=== PATIENT | male | born 1950 | race Caucasian/White ===

== ENCOUNTER 2016-09-11 20:45 | Observation (INO) | payer OTHER ==
--- NOTE | ~2016-09-11 | CO ---
Unit #: [id number] #: [id number] Patient: BEBE ULRICH [id number] [address] [address] [id number] I MR#: [id number] NAME: BEBE ULRICH ROOM: 564 Age: 65 Sex: M Admission Date: 09/11/2016 : 1950 Attending Physician: Jenni Rosado M.D. Primary Care Physician: Christiano Snowden M.D. Requesting Physician: Jenni Rosado M.D. Consultation Date: 09/13/2016 CONSULTATION REPORT REASON FOR CONSULTATION "Noncardiac chest pain." HISTORY OF PRESENT ILLNESS Mr. Ulrich is a very pleasant 65-year-old white gentleman. 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 According to the patient in the past couple of weeks he has had two or three episodes of substernal chest pain radiating across the chest. These last for less than a minute or two each time and at times they are radiating to the bilateral jaws. He had the last episode yesterday evening. The pain almost felt like a toothache. He does have a background history of gastroesophageal reflux disease, but this is controlled on [id number] PPI therapy. PAST MEDICAL HISTORY 1. History of hypertension. 2. Hyperlipidemia. PAST SURGICAL HISTORY 1. Knee surgery. 2. Umbilical herniorrhaphy. 3. The patient required chest tube for collapsed lung about 20 years ago. SOCIAL HISTORY The patient is an ex-smoker, having more than 30 year pack history of smoking. He does not drink alcohol. He works as a chemistry associate. He lives at home with his . FAMILY HISTORY Significant for lung cancer and heart failure. ALLERGIES No known drug allergies. HOME MEDICATIONS 1. Nitroglycerin. 2. Lipitor. REVIEW OF SYSTEMS Detailed review of organ systems does not reveal any recent weight loss. No history of fever, chills or rigors, headache, seizures or syncope. No history of cough, expectoration or hemoptysis. He does mention a history of gastroesophageal reflux disease, controlled on [id number] PPI therapy. No history of dysuria, hematuria or pyuria. No history of focal Unit #: [id number] #: [id number] Patient: BEBE ULRICH seizures or (1)____ weakness. PHYSICAL EXAMINATION GENERAL: He is alert and oriented. He appears comfortable. VITALS: Stable with a temperature of 97.8, pulse 65 per minute, respiratory rate 18, blood pressure 141/89. He weighs 231 pounds and appears well nourished. HEENT: He has no pallor, icterus, lymphadenopathy or peripheral edema. LUNGS: Auscultation of the lungs revealed normal breath sounds and good entry. HEART: Normal heart sounds. No murmurs. ABDOMEN: Soft and nontender. Liver and spleen are not palpable. Bowel sounds present. DIAGNOSTIC STUDIES LABORATORY: Normal CBC and CMP. Cardiac enzymes are also normal. CARDIOVASCULAR: The patient apparently had a heart catheterization that does not show any major significant coronary artery disease, but he did have aneurysmal dilation of the ascending aorta. ASSESSMENT/PLAN Patient with "noncardiac" chest pain. He does have a background history of gastroesophageal reflux disease. It would be reasonable to proceed with a diagnostic endoscopy in this gentleman. The pros and cons of proceeding, including the potential risks and complications were discussed with the patient and and they were reassured. Thank you for asking me to see this pleasant gentleman. I appreciate the consultation. Dictated by... Janes Johnson/mani TD: 09/14/2016 09:42 JOB #: [id number] CC: Janes Adkins M.D. CONSULTATION REPORT X Reilly Baez MD CONSULTATION REPORT
--- NOTE | ~2016-09-11 | CT15 ---
[facility] A Service of [facility] & [facility] RADIOLOGY TEXT RESULTS PATIENT: BEBE SPRAGUE LOCATION: [facility] 564-01 : 51 UNIT #: [id number] AGE: [address]: Jenni Rosado MD SEX: M ORDER DR: [id number] [facility]. [place], [place] [address] [id number] I MR#: [id number] Acc #: [id number] NAME: BEBE SPRAGUE. : 1950 SEX: M STUDY DATE/TIME: 09/12/2016 20:30 UNIT: [facility] ROOM: [facility] STUDY DESCRIPTION: CT Angio Chest Attending Physician: Jenni Rosado M.D. Ordering Physician: Alejandro Marr M.D. Primary Care Physician: Christinao Snowden M.D. MEDICAL IMAGING REPORT This report is preliminary unless electronic signature is present EXAM CT angiography of the chest with IV contrast COMPARISON None INDICATIONS 65-year-old male with chest pain for 10 days and dyspnea for 2 days. Clinical concern for aneurysm. This CT exam was performed with one or more of the following radiation dose reduction techniques: automatic exposure control, adjustment of mA and/or kV according to patient size, and iterative reconstruction. FINDINGS Axial CT imaging of the chest was performed during arterial phase. Coronal and sagittal MIPs were subsequently constructed. Diffuse spondylosis of the anterior thoracic spine. No acute fractures or suspicious osseous lesions. Excreted contrast is noted within the renal calyces bilaterally. 2 mm low density lesion in the right hepatic lobe most consistent with a simple cyst. Separate simple cyst measuring up to 6 mm in the right hepatic lobe. Diverticulosis of the right colon without evidence of acute diverticulitis. Dependent atelectasis in the right lung. Mild para septal emphysematous changes in the dependent lower lobes as well as within the upper lobes. Calcified granuloma right middle lobe. Small blebs seen in the right lower lobe. No pneumothorax, pleural effusion or acute airspace disease. Airways are widely patent. Scattered mediastinal lymph nodes without pathologic enlargement, likely reactive. There is normal caliber of the pulmonary artery. Phase of postcontrast imaging is not designed for evaluation of pulmonary embolus. Normal heart size without pericardial STS. [facility] A Service of [facility] & [facility] RADIOLOGY TEXT RESULTS PATIENT: BEBE SPRAGUE LOCATION: [facility] 564-01 : [birth year] UNIT #: [id number] AGE: [address]: Jenni Rosado MD SEX: M ORDER DR: effusion. Evaluation of the thoracic aorta is mildly limited by motion artifact. There is normal caliber of the thoracic aorta and the suprarenal abdominal aorta. There is no evidence of aortic dissection. There is a three-vessel aortic arch. There is patency of the celiac artery and visualized branches. Visualized superior mesenteric artery is also patent. Evaluation for patency of the renal arteries is limited due to phase of postcontrast imaging. IMPRESSION 1. No evidence of thoracic or the suprarenal abdominal aorta aneurysm. 2. No dissection. 3. Mild to moderate emphysema. No acute airspace disease. 4. Colonic diverticulosis without evidence of acute diverticulitis. 5. Small cysts in the liver. Dictated by... Phu Mayen M.D. THIS IS AN ELECTRONICALLY VERIFIED REPORT Phu Mayen M.D. at 09/19/2016 8:24 AM Penelope TD: 09/13/2016 09:35 JOB #: [id number] MEDICAL IMAGING REPORT COPY
--- NOTE | ~2016-09-11 | EKG ---
PATIENT: BEBE SPRAGUE UNIT #: [id number] Ventricular Rate: 63 BPM Atrial Rate: 63 BPM P-R Interval: 186 ms QRS Duration: 100 ms Q-T Interval: 456 ms QTC Calculation(Bezet): 466 ms P [place]: 23 degrees Calculated R [place]: 16 degrees Calculated T [place]: 33 degrees Diagnosis Line: Normal sinus rhythm Diagnosis Line: Normal ECG Diagnosis Line: When compared with ECG of 11-SEP-2016 23:01, Diagnosis Line: (unconfirmed) Diagnosis Line: No significant change was found Diagnosis Line: Confirmed by KRISTOPHER ABBASI MD ([id number]) on Diagnosis Line: 09/12/2016 12:08:33 PM INTERPRETING MD: JOSÉ
--- NOTE | ~2016-09-11 | DS ---
Unit #: [id number] #: [id number] Patient: BEBE SPRAGUE [id number] [address] [place], [place] [address] [id number] I MR#: [id number] NAME: BEBE SPRAGUE. ROOM: 564 Age: 65 Sex: M Admission Date: 09/11/2016 : 1950 Discharge Date: 09/13/2016 Attending Physician: Jenni Rosado M.D. Primary Care Physician: Christiano Snowden M.D. DISCHARGE SUMMARY HISTORY This 65-year-old white male was admitted to the hospital because of chest pains. He was found to have hypertension, used to smoke cigars, which he gave up a number of years ago, and there is no history of diabetes mellitus or hyperlipidemia. He has been treated in the past for gastroesophageal reflux disease using Nexium. About a week prior to admission he started to complain of chest discomfort, which progressively worsened over the day or two before admission, described as mild pressure midsternal in location without any radiation. Details are available in the H and P, but as the pain started to worsen in severity and duration with radiation to the toothache, he came to the emergency room. He had complained of shortness of breath on exertion but leads a reasonably sedentary lifestyle to evaluate his exercise capacity. He denied any ankle edema, orthopnea, nocturnal dyspnea, syncope or near syncope. He drinks 1 or 2 alcoholic beverages on a daily basis. There is no family history of coronary artery disease at a young age. PHYSICAL EXAMINATION GENERAL: Physical examination revealed a middle-aged male in no acute distress. NECK: There is no jugular venous distention. Both carotids had a normal upstroke without any bruits. VITAL SIGNS: Blood pressure was 128/76. EXTREMITIES: There was no ankle edema. CARDIOVASCULAR: Cardiac exam showed apical impulse to be normal. Both heart sounds were normal. No rubs or clicks were audible. There was no murmur. RESPIRATORY: Chest examination was normal to palpation, percussion and auscultation. ABDOMEN: Abdominal examination showed mild obesity. There was no organomegaly, free fluid or masses. RECTAL: Examination was deferred. 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 DIAGNOSTIC STUDIES CARDIOVASCULAR: Electrocardiogram showed normal sinus rhythm and was within normal limits. IMAGING: Chest x-ray showed no significant abnormalities. LABORATORY: Cardiac enzymes were normal. Serum cholesterol was 137, triglycerides 42, LDL 71, HDL 58. CBC differential was normal with hemoglobin of 15.3, hematocrit 43.6, white cells 5,600, platelet count Unit #: [id number] #: [id number] Patient: BEBE SPRAGUE 146,000. HOSPITAL COURSE The patient was advised to consider an exercise Cardiolite scan or a cardiac catheterization, and with new onset of chest discomfort occurring at rest and with other major risk factors for coronary artery disease as described above, the patient and the family opted to undergo cardiac catheterization, which was performed on 09/12/16. Left ventricular systolic function was normal. There was moderately dilated ascending aorta that showed moderate unfolding of the aorta. Aortic valve consisted of 3 cusps. Left main coronary artery was normal. Left anterior descending artery and its branches were normal, and the left circumflex was a large caliber, dominant vessel, which was normal. Right coronary artery could not be engaged selectively during the cardiac catheterization being performed on the right radial artery approach because of marked tortuosity of the right brachiocephalic trunk. The patient was advised that a nondominant right coronary artery has not been visualized and could be the cause of his symptoms, but even if that was the case, treatment would be conservative, and medical management would be pursued. He was seen by Dr. Reilly Baez from gastroenterology service who suggested a trial of Protonix and scheduled him for a HIDA scan with CCK in the next few weeks because of the postprandial nature of his pain. The patient also underwent a CT angiography of the chest to rule out an aneurysmal dilatation, and it is reported as showing no evidence of thoracic or suprarenal abdominal aortic aneurysm. There is no dissection. There is [id number] emphysema with no acute airspace disease, and colonic diverticulosis was noted without evidence of acute diverticulitis. It should be noted that his echocardiogram showed left ventricular systolic function was normal with ejection fraction of 50% to 55%. There was mild pericardial effusion versus a small fat pad, and there was mild dilatation of the aortic root with a technically limited study. DISCHARGE MEDICATIONS 1. The patient will be discharged home on Protonix 40 mg p.o. b.i.d., and he should follow up with Dr. Baez in the next 6-8 weeks. 2. Metoprolol 25 mg p.o. b.i.d. is being started for better control of blood pressure and to help diastolic dysfunction. 3. Losartan 100 mg daily will continue. 4. Aspirin 81 mg daily. DISCHARGE INSTRUCTIONS I have advised the patient to follow up with Dr. Christiano Snowden on a regular basis, and if chest pains persist, he should contact my office, and arrangements will be made to evaluate right coronary artery distribution for significant ischemia either by an exercise Cardiolite scan or repeat cardiac catheterization using the right femoral artery approach. FINAL DIAGNOSES 1. Chest pain, etiology undetermined. 2. Hypertensive heart disease. 3. Maradiaga esophagus. 4. Probable gastroesophageal reflux disease. Unit #: [id number] #: [id number] Patient: BEBE SPRAGUE Dictated by... Janes Rogers TD: 09/15/2016 10:03 JOB #: [id number] DISCHARGE SUMMARY X Alejandro Marr MD X DISCHARGE SUMMARY
--- NOTE | ~2016-09-11 | EKG ---
PATIENT: BEBE SPRAGUE UNIT #: [id number] Ventricular Rate: 74 BPM Atrial Rate: 74 BPM P-R Interval: 176 ms QRS Duration: 110 ms Q-T Interval: 452 ms QTC Calculation(Bezet): 501 ms P [place]: 39 degrees Calculated R [place]: 30 degrees Calculated T [place]: 46 degrees Diagnosis Line: Normal sinus rhythm Diagnosis Line: Prolonged QT Diagnosis Line: Abnormal ECG Diagnosis Line: No previous ECGs available Diagnosis Line: Confirmed by KRISTOPHER ABBASI MD ([id number]) on Diagnosis Line: 09/12/2016 11:58:06 AM INTERPRETING MD: JOSÉ
--- NOTE | ~2016-09-11 | HP ---
Unit #: [id number] #: [id number] Patient: BEBE ULRICH [id number] [facility]. [place], [place] [address] [id number] I MR#: [id number] NAME: BEBE ULRICH. ROOM: 564 Age: 65 Sex: M Admission Date: 09/11/2016 : 1950 Attending Physician: Jenni Rosado M.D. Primary Care Physician: Christiano Snowden M.D. HISTORY AND PHYSICAL HISTORY OF PRESENT ILLNESS This is a 65-year-old white male with known history of having hypertension, who came to the emergency room with chest pain. According to the patient, about a week ago he had the onset of substernal chest pain that radiated across his chest. He said that he had some slight shortness of breath at that time. It lasted 5 to 10 minutes. He also was a little clammy. He said that it resolved. He was at work but he says he wasn't doing anything unusual. He sat down and rested for 5 or 10 minutes and it resolved. Since that time, he has had some mild pressure, mid sternal area, without any radiation until yesterday morning. 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 He said it radiated up across his chest and he even had some pain up into his left jaw. He said it felt like a toothache. He got a little clammy and he became very short of breath. The shortness of breath intensified along with the chest pain. He was brought into the emergency room for further evaluation. It was also noted that he had an episode a couple of nights before that where it woke him up in the night with some chest pressure but he got up and drank some water and the discomfort resolved. He denies any pain up into his bilateral shoulders, back. No abdominal pain. Denies any nausea, vomiting or diarrhea. No dizziness, presyncope or syncopal episodes. Denies any palpitations. No recent cough, fever or chills. The patient will be admitted with further evaluation and workup. The patient had a stress test over 20 years ago. He reports that it was normal. PAST MEDICAL HISTORY Hypertension. It is noted that he has hyperlipidemia but patient denies being on any medication. Quit smoking cigars about three years ago. He drinks two gin and tonics a night. Reports never been a heavy drinker. Stress test over 20 years ago. Reports that it was normal. Anxiety. PAST SURGICAL HISTORY 1. Umbilical hernia repair. 2. Knee surgery. 3. 20 years ago had a collapsed lung and required a chest tube. Unclear of the etiology. SOCIAL HISTORY Patient lives with his family. 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 He is otherwise fairly sedentary. Quit smoking cigars about three years ago. Never was a heavy cigarette smoker. He drinks two tonic gins nightly. Denies alcoholic abuse. No illicit drug abuse. Unit #: [id number] #: [id number] Patient: BEBE ULRICH FAMILY HISTORY His mother had complications of congestive heart failure. He is not sure of his father's history. His brother of lung cancer. REVIEW OF SYSTEMS CONSTITUTIONAL: Denies fever or chills. No recent weight gain or weight loss. HEENT: Denies headache or dizziness. No visual or hearing changes. No lymphadenopathy or thyromegaly, no difficulty swallowing. CARDIOVASCULAR: Chest pain present. Denies palpitations. Denies increased lower extremity edema. PULMONARY: Increased shortness of breath with the chest. Denies paroxysmal nocturnal dyspnea or orthopnea. GI: Denies nausea, vomiting, diarrhea or abdominal pain. NEUROLOGICAL: No focal weakness. PHYSICAL EXAMINATION GENERAL: On exam, Mr. Ulrich is a 65-year-old white male in no acute respiratory distress. He is awake, alert and oriented. VITAL SIGNS: Blood pressure is 117/88, heart rate 70, respirations 19, temperature 97.9, O2 sats 94% on room air. NECK: Trachea midline. No thyromegaly or lymphadenopathy. Normal carotid upstrokes. No jugular venous distention. HEART: S1, S2. Regular rate and rhythm. No clicks, murmurs or rubs. LUNGS: Diminished, otherwise clear. ABDOMEN: Soft, nontender. Positive bowel sounds present. No hepatosplenomegaly. EXTREMITIES: Pedal pulses are palpable. No pedal edema. DIAGNOSTIC STUDIES LABORATORY: Glucose 110, BUN 14, creatinine 0.8, eGFR above 60, sodium 141, potassium 3.8, chloride 109, CO2 26, calcium 8.8, magnesium 1.8. WBC 5.0, hemoglobin 14.7, hematocrit 4.3, platelets 150. Protime is 11.1, INR 1.0. D-dimer is 216. Initial cardiac enzymes - CK MB is 1.6, troponin less than 0.01. Repeat cardiac enzymes - CK total 37, troponin less than 0.03 and troponin less than 0.03. IMAGING: Chest x-ray shows no acute disease process. CARDIOVASCULAR: EKG shows normal sinus rhythm with ventricular rate 74 beats per minute, slightly prolonged QT. Questionable Q wave in V1 and nondiagnostic Q waves in lead III. Low voltage in inferior leads. IMPRESSION 1. Chest pain. 2. Hypertension. 3. Anxiety. 4. Alcohol use. 5. Reformed smoker. PLAN 1. With his symptoms that are suggestive of ischemic heart disease, will have a cardiac catheterization today by Dr. Marr to further evaluate. 2. Will continue the patient on aspirin 81 mg p.o. daily along with nitrate. He is on losartan for blood pressure management. Unit #: [id number] #: [id number] Patient: BEBE ULRICH 3. Will start Lipitor 80 mg p.o. now before his heart catheterization. 4. Discussed with patient risks and benefits of the heart catheterization including risk of bleeding, myocardial infarction, stroke and even . The patient verbalized his understanding and agrees to proceed. 5. Obtain a fasting lipid profile and evaluate. 6. On exam, there are no signs or symptoms of acute congestive heart failure. 7. Further recommendations pending per Dr. Marr and after his heart catheterization. 8. Will hold off on any Lovenox this morning. Patient did get a dose last evening in the ER. 9. Encouraged patient to completely quit alcohol use and lifestyle modifications. Dictated by Tiffani Obando A.P.R.N. for Alejandro Marr M.D. Brett TD: 09/12/2016 10:20 JOB #: [id number] HISTORY AND PHYSICAL X Tiffani Obando APRN X HISTORY AND PHYSICAL
--- NOTE | ~2016-09-11 | BMI ---
[facility] Nutrition Therapy DATE: 09/12/16 Patient: BEBE SPRAGUE Physician: ATTPRE Address: [address] Room/Bed: [address] [place] [address], Zip: [place] [address] Admit Date: 09/11/16 Date of : [birth year] Height: 5 3 Weight: 230 104.4 HIGH BMI NOTE: DX: 65 y/o male admitted with chest pain ANTHROPOMETRICS: Ht: 63", Wt: 104.4 kg, BMI: 40 DIET: NPO INTERVENTION: Restricted diet, meds/fluids per MD RECOMMENDATIONS: Once able advance to healthy heart diet to promote a gradual weight loss towards a healthy BMI range. Respectfully, Uzma Land RD, LD Food and Nutritional Services [facility] cc: client file
--- NOTE | ~2016-09-11 | OR ---
Unit #: [id number] #: [id number] Patient: BEBE SPRAGUE [id number] [address] [place], [place] [address] [id number] I MR#: [id number] NAME: BEBE SPRAGUE. ROOM: 564 Date of Procedure: 09/13/2016 Admission Date: 09/11/2016 Surgeon: Reilly Baez M.D. : 1950 Attending Physician: Jenni Rosado M.D. Primary Care Physician: Christiano Snowden M.D. OPERATIVE REPORT PRIMARY CARE PHYSICIAN Christiano Snowden M.D. PREOPERATIVE DIAGNOSIS "Noncardiac" chest pain. PROCEDURES PERFORMED Upper gastrointestinal endoscopy and biopsies. POSTOPERATIVE DIAGNOSES 1. The patient had classic changes of Maradiaga esophagus in the distal esophagus. The Maradiaga segment is about 4 cm in length. Biopsies obtained at 37 and 39 cm from the incisors in 4 quadrants and sent for histology. 2. Mild to moderate prepyloric antral erosive gastritis. 3. Rest of examination up to third part of duodenum was normal. RECOMMENDATIONS 1. The patient is advised to use pantoprazole 40 mg p.o. b.i.d. 2. An outpatient HIDA scan and ultrasound is being scheduled and the patient will be reviewed in the office in 4 to 6 weeks' time. The findings on upper endoscopy do not explain the patient's symptomatology. SEDATION USED MAC. DESCRIPTION OF PROCEDURE Following detailed explanation of potential risks and complications of an upper endoscopy, namely perforation, bleeding, and complications related to sedation, the patient was brought to GI lab and laid in the left lateral decubitus position. Lubricated tip of the Olympus video upper endoscope was passed through bite block into the proximal esophagus under direct vision. The entire esophageal mucosa was examined. The patient was noted to have changes of long segment of Maradiaga esophagus in the distal esophagus with classic changes. This Maradiaga segment is at least about 3.5 to 4 cm in length. No esophagitis was noted. The scope was then advanced into the gastric cavity and the latter was insufflated. Mucosa of the fundus, body, and antrum was examined. The patient noted to have mild to moderate prepyloric antral erythema and erosions indicating antral gastritis. Pylorus was intubated with visualization of the normal duodenal and second and third part of the duodenum. Upon withdrawal and retroflexion, incisura, cardia, and greater curve examined and a biopsy Unit #: [id number] #: [id number] Patient: BEBE SPRAGUE obtained from the antrum for CLOtest. The scope was withdrawn in the distal esophagus. Four-quadrant biopsies obtained at 39 and then 37 cm from incisors and sent for histology to look for incomplete intestinal metaplasia with or without dysplasia of Maradiaga. The entire esophageal mucosa was examined all the way up to pharynx. No additional findings noted. Dictated by... Janes Johnson/ruby TD: 09/14/2016 05:02 JOB #: [id number] OPERATIVE REPORT X Reilly Baez MD X PROCEDURE OPERATIVE NOTE
[~2016-09-11 20:45] MED LIST: COZAAR100 MG PO; KLONOPIN0.5 MG PO; NEXIUM 24HR20 MG PO
[2016-09-12 03:29] LABS: BASOPHIL# 0.1 X10e3 (0-0.3); BASOPHIL% 1.2 % (0-2.5); EOSINOPHIL# 0.1 X10e3 (0-0.7); EOSINOPHIL% 2.9 % (0.0-7.0); HEMATOCRIT 42.3 % (38.0-50.0); HEMOGLOBIN 14.7 gm/dL (13.0-16.0); LYMPHOCYTE# 0.9 X10e3 (1.0-3.5); MEAN CORPUSCULAR HEMOGLOBIN 29.9 PG (28-34); MEAN CORPUSCULAR HGB CONC 34.8 g/dL (30-36); MEAN PLATELET VOLUME 6.6 FL (6.5-11.5); MONOCYTE# 0.4 X10e3 (0-1.0); MONOCYTE% 7.5 % (3.0-12.0); NEUTROPHIL# 3.4 X10e3 (1.5-7.1); NEUTROPHIL% 69.4 % (40-75); PLATELET COUNT 150 X10e3 (140-420); RED BLOOD COUNT 4.91 X10e (3.90-5.60); RED CELL DISTRIBUTION WIDTH 15.2 % (11.0-15.5)
[2016-09-12 03:31] LABS: DIFF IND NO
[2016-09-12 03:49] LABS: PARTIAL THROMBOPLASTIN TIME 25.2 SECONDS (23.5-31.3)
[2016-09-12 03:58] LABS: BLOOD UREA NITROGEN 14 mg/dL (9-23); CALCIUM SERUM 8.8 mg/dL (8.4-10.2); CARBON DIOXIDE 26 mmol/L (22-31); CHLORIDE 109 mmol/L (100-111); CREATININE SERUM 0.8 mg/dL (0.6-1.4); GLOM FILT RATE Estimated ABOVE60 mL/min (>60); GLUCOSE FASTING 110 mg/dL (70-110); MAGNESIUM 1.8 mg/dL (1.6-3.0); POTASSIUM 3.8 mmol/L (3.5-5.1); SODIUM 141 mmol/L (135-145)
[2016-09-12 11:20] LABS: HEMATOCRIT 43.6 % (38.0-50.0); HEMOGLOBIN 15.3 gm/dL (13.0-16.0); MEAN CELL VOLUME 86.5 FL (83-96); MEAN CORPUSCULAR HEMOGLOBIN 30.3 PG (28-34); MEAN PLATELET VOLUME 6.7 FL (6.5-11.5); RED BLOOD COUNT 5.05 X10e (3.90-5.60); RED CELL DISTRIBUTION WIDTH 15.5 % (11.0-15.5)
[2016-09-12 11:27] LABS: PARTIAL THROMBOPLASTIN TIME 25.3 SECONDS (23.5-31.3); PROTHROMBIN TIME (PATIENT) 10.9 SECONDS (9.6-11.5)
[2016-09-12 12:26] LABS: CHOLESTEROL 137 mg/dL (0-200); HDL CHOLESTEROL 58 mg/dL (29-75); LDL CHOLESTEROL 71 mg/dL ([, -130]); LDL/HDL RATIO 1 RATIO (0-4); TRIGLYCERIDES 42 mg/dL (10-160)
[2016-09-12 13:03] LABS: BLOOD UREA NITROGEN 12 mg/dL (9-23); CALCIUM SERUM 8.8 mg/dL (8.4-10.2); CARBON DIOXIDE 26 mmol/L (22-31); CHLORIDE 105 mmol/L (100-111); CREATININE SERUM 0.8 mg/dL (0.6-1.4); GLOM FILT RATE Estimated ABOVE60 mL/min (>60); GLUCOSE FASTING 92 mg/dL (70-110); SODIUM 138 mmol/L (135-145)
[2016-09-13 07:58] LABS: CREATININE SERUM 0.9 mg/dL (0.6-1.4); GLOM FILT RATE Estimated ABOVE60 mL/min (>60)
[2016-09-13] MEDS ORDERED: PANTOPRAZOLE SO40 MG PO (18:17)
[2016-09-13] MEDS ORDERED: METOPROLOL TART25 MG PO (18:19)
[2016-09-13] MEDS ORDERED: ASPIRIN81 M2 PO (18:26)
== END 2016-09-13 19:18 | disposition home or self-care (01) | DRG 313 ==
LOC: C5C 20:45
PROVIDERS: Internal Medicine Cardiovascular Disease
DX: R07.89 Other chest pain (principal); I11.9 Hypertensive heart disease without heart failure; K22.70 Barrett's esophagus without dysplasia; K29.60 Other gastritis without bleeding; K21.0 Gastro-esophageal reflux disease with esophagitis; F41.9 Anxiety disorder, unspecified; Z87.891 Personal history of nicotine dependence; I07.1 Rheumatic tricuspid insufficiency; Z80.1 Family history of malignant neoplasm of trachea, bronchus and lung; Z82.49 Family history of ischemic heart disease and other diseases of the circulatory system
CPT/HCPCS: 71275; 80048; 80061; 82550; 82565; 83735; 84484; 85025; 85027; 85610; 85730; 87077; 88305; 93005; 93306; 96374; C1769; C1887; C1894; G0378; J1644; J2250; J2405; J3010; Q9967